=== PATIENT | female | born 1955 | race Caucasian/White ===

== ENCOUNTER 2016-11-19 19:05 | Emergency (ER) | payer SELFPAY ==
[~2016-11-19] VITALS: Ht 162.6 cm; Wt 89.8 kg
[~2016-11-19 19:05] MED LIST: GLYB5TAB7 PO; METF-303 PO; METR500T PO
[2016-11-19 19:29] VITALS: BP_SYST 177
[2016-11-19] MEDS ORDERED: GLU850 PO (19:36)
[2016-11-19] MEDS ORDERED: ELUX100T PO (19:37)
[2016-11-19] MEDS ORDERED: NACL 0.9% 1,000 ML IV ONE (20:45)
[2016-11-19] MEDS ORDERED: INSULIN REGULAR, HUMAN 10 UNITS/0.1 ML INJ SUBCUT ONE (20:45)
[2016-11-19 21:26] LABS: BASOPHILS # (AUTO) 0.1 K/uL (0.0-0.2); BASOPHILS % (AUTO) 0.7 % (0.0-2.0); EOSINOPHILS # (AUTO) 0.1 K/uL (0.0-0.4); EOSINOPHILS % (AUTO) 0.9 % (0.0-4.0); HEMATOCRIT 46.3 % (36-48); HEMOGLOBIN 15.4 g/dL (12.0-16.0); LYMPHOCYTES # (AUTO) 2.6 K/uL (1.0-5.5); LYMPHOCYTES % (AUTO) 35.9 % (20.5-51.5); MEAN CORPUSCULAR HEMOGLOBIN 28 pg (27-31); MEAN CORPUSCULAR HGB CONC 33 % (32-36); MEAN CORPUSCULAR VOLUME 85 fL (79.0-98.0); MONOCYTES # (AUTO) 0.4 K/uL (0.0-1.0); MONOCYTES % (AUTO) 5.7 % (1.7-9.3); NEUTROPHILS # (AUTO) 4.1 K/uL (1.8-7.7); NEUTROPHILS % (AUTO) 56.8 % (40.0-70.0); PLATELET COUNT (AUTO) 204 K/uL (130-430); RED BLOOD CELL COUNT(AUTO) 5.46 MIL/uL (4.2-6.2); RED CELL DISTRIBUTION WIDTH 12.1 % (9.0-15.0); WHITE BLOOD COUNT (AUTO) 7.3 K/uL (4.8-10.8)
[2016-11-19 21:35] LABS: CALCIUM 9.4 mg/dL (8.4-11.0); CREATININE 1.21 mg/dL (0.55-1.30); POTASSIUM 4.1 mmol/L (3.5-5.1)
[2016-11-19 21:36] LABS: ALBUMIN 3.7 g/dL (3.4-4.8); TOTAL BILIRUBIN 0.4 mg/dL (0.0-1.0)
[2016-11-19 22:45] LABS: BILIRUBIN,URINE NEGATIVE (NEGATIVE); BLOOD, URINE NEGATIVE (NEGATIVE); CLARITY/URINE CLEAR (CLEAR); COLOR,URINE YELLOW (YELLOW); GLUCOSE,URINE 3+ (NEGATIVE); KETONES,URINE NEGATIVE (NEGATIVE); LEUKOCYTE ESTERASE ,URINE NEGATIVE (NEGATIVE); NITRITE, URINE NEGATIVE (NEGATIVE); PH,URINE 5.5 (5.0-8.0); PROTEIN URINE NEGATIVE (NEGATIVE); UROBILINOGEN,URINE 0.2 (0.2-1.0)
[2016-11-19 23:41] LABS: BACTERIA,URINE RARE /HPF (None Seen); MUCUS,URINE None Seen /LPF (None Seen); RBC,URINE 0-3 /HPF (0-3); WBC,URINE 0-3 /HPF (0-3)
[2016-11-20] MEDS ORDERED: NACL 0.9% 1,000 ML IV ONE
[2016-11-20] MEDS ORDERED: GLYB2.5T4 PO (00:35)
[2016-11-20] MEDS ORDERED: PIPERACILLIN/TAZO 3.375 GM in NS 50 ML IV ONE (00:45)
[2016-11-20] MEDS ORDERED: PIPERACILLIN/TAZOBACTAM 3.375 GM/VIAL (ZOSYN) IV ONE (00:56)
[2016-11-20 01:56] LABS: CALCIUM 8.3 mg/dL (8.4-11.0); CREATININE 0.93 mg/dL (0.55-1.30); POTASSIUM 3.7 mmol/L (3.5-5.1)
[2016-11-20] MEDS ORDERED: DIPHENHYDRAMINE INJ 50 MG/ML VIAL IVP ONE (02:45)
[2016-11-20 02:55] VITALS: BP_SYST 136
== END 2016-11-20 02:55 | disposition home or self-care (01) ==
LOC: SED 19:05
DX: E11.65 Type 2 diabetes mellitus with hyperglycemia (principal); R21 Rash and other nonspecific skin eruption; R74.0 Nonspecific elevation of levels of transaminase and lactic acid dehydrogenase [LDH]; Z88.1 Allergy status to other antibiotic agents; Z88.5 Allergy status to narcotic agent
CPT/HCPCS: 36415; 71010; 80048; 80053; 81000; 82962; 83605; 84484; 85025; 93005; 96361; 96365; 96372; 96375; 99285; J1200; J2543; J7030